=== PATIENT | male | born 1945 | race Caucasian/White ===

== ENCOUNTER → 2020-05-04 07:45 | Outpatient (BNVA) | payer MEDICARE, SELFPAY | PROVIDERS: Family Provider Internal Medicine; PCP Internal Medicine; Visit Provider Urology | DX: R97.20 Elevated prostate specific antigen [PSA] (principal); N40.1 Benign prostatic hyperplasia with lower urinary tract symptoms | CPT/HCPCS: 81003; 84153 ==

== ENCOUNTER → 2020-09-05 13:24 | Outpatient (BNVA) | payer MEDICARE, SELFPAY | PROVIDERS: Family Provider Internal Medicine; PCP Family Medicine; Visit Provider Urology | DX: R97.20 Elevated prostate specific antigen [PSA] (principal); N40.1 Benign prostatic hyperplasia with lower urinary tract symptoms | CPT/HCPCS: 84153 ==

== ENCOUNTER → 2021-06-05 10:26 | Outpatient (BNVA) | payer MEDICARE, SELFPAY | PROVIDERS: Family Provider Internal Medicine; PCP Family Medicine; Visit Provider Urology | DX: R97.20 Elevated prostate specific antigen [PSA] (principal); N40.1 Benign prostatic hyperplasia with lower urinary tract symptoms | CPT/HCPCS: 81003; 84153 ==

== ENCOUNTER 2021-12-18 09:23 | Outpatient (CLI) | payer MEDICARE, SELFPAY ==
[2021-12-18 10:50] LABS: Prostate Specific AG Urology 8.56 ng/mL (0-4)
== END 2021-12-18 09:24 | disposition home or self-care (01) ==
PROVIDERS: PCP Family Medicine; Visit Provider Urology
DX: R97.20 Elevated prostate specific antigen [PSA] (principal); N40.1 Benign prostatic hyperplasia with lower urinary tract symptoms
CPT/HCPCS: 36415; 51798; 81003; 84153; 99213

== ENCOUNTER → 2022-06-13 08:59 | Outpatient (BNVA) | payer MEDICARE, SELFPAY | PROVIDERS: PCP Family Medicine; Visit Provider Urology | DX: R97.20 Elevated prostate specific antigen [PSA] (principal) | CPT/HCPCS: 84153 ==

== ENCOUNTER → 2022-06-20 10:09 | Outpatient (BNVA) | payer OTHER, MEDICARE, SELFPAY | PROVIDERS: PCP Family Medicine; Visit Provider Urology | DX: N40.1 Benign prostatic hyperplasia with lower urinary tract symptoms (principal); R97.20 Elevated prostate specific antigen [PSA] | CPT/HCPCS: 51798; 99213 ==

== ENCOUNTER → 2022-07-04 11:36 | Outpatient (BNVA) | payer OTHER, MEDICARE, SELFPAY | PROVIDERS: PCP Family Medicine; Visit Provider Nurse Practitioner Family | DX: L71.8 Other rosacea (principal); I87.2 Venous insufficiency (chronic) (peripheral); L57.0 Actinic keratosis; L82.1 Other seborrheic keratosis; Z85.820 Personal history of malignant melanoma of skin; Z87.891 Personal history of nicotine dependence; L57.8 Other skin changes due to chronic exposure to nonionizing radiation | CPT/HCPCS: 17000; 17003; 99214 ==

== ENCOUNTER 2022-09-07 08:00 | Outpatient (CLI) | payer MEDICARE, SELFPAY ==
--- NOTE | 2022-09-07 | PETR_ITS ---
PROCEDURE INFORMATION: Exam: PET/CT Skull Base to Mid-thigh Exam date and time: 09/07/2022 11:46 AM Age: 77 years old Clinical indication: Abnormal findings; Lung mass on recent CT LABS AND CLINICAL REPORTS: Glucose: 112 mg/dl Treatment strategy for malignancy (PET staging): Initial Staging (PI) TECHNIQUE: Imaging protocol: Following at least four-hour fasting and following the injection of radiopharmaceutical, low dose CT images were obtained. Then, PET images were obtained. Attenuation corrected images were constructed using the CT scan. Fused images of PET and CT were reviewed. The standardized uptake values (SUV) reported below are maximum values within a region of interest, expressed in gm/ml. Exam includes orbital meatal line to mid-thigh. Radiopharmaceutical: 12.29 mCi F-18 FDG (Fluorodeoxyglucose), IV. Time of imaging post radiopharmaceutical administration: 1 hour Injection site: Left antecubital COMPARISON: No relevant prior studies available. FINDINGS: Brain: Visualized brain has normal physiologic uptake. Paranasal sinuses: Postoperative changes of resection of portions of the medial howe of the bilateral maxillary sinuses are noted. No abnormal uptake. Pharynx: No abnormal uptake. Larynx: No abnormal uptake. Lungs, pleura and trachea: No abnormal uptake. Mild bullous changes in the medial right upper lobe are noted. Linear dependent streaky density in the lower lobes and lingula is noted without elevated uptake, likely representing atelectasis or scarring. A solid lingular nodule which does not appear calcified measuring 4 mm on series 3, image 74 is not radiotracer avid. Evaluation of the lungs is slightly limited by respiratory motion artifact. Heart: Normal physiologic uptake. Mediastinal space: No abnormal uptake. Liver: No abnormal uptake. Gallbladder and bile ducts: No abnormal uptake. Pancreas: No abnormal uptake. Spleen: No abnormal uptake. Adrenal glands: No abnormal uptake. Kidneys and ureters: Normal physiologic uptake. Stones in the right kidney are noted. No hydronephrosis. Stomach and bowel: No abnormal uptake. There are scattered colonic diverticula. Reproductive: There are bilateral scrotal surgical clips. No abnormal uptake. Vasculature: No abnormal uptake. Lymph nodes: An inferior right paratracheal/precarinal lymph node measuring 1.2 cm on series 3, image 61 is noted, SUV max 5.5. An approximately 1.1 cm subcarinal lymph node is present, SUV max 4.0. An 8 mm lymph node in the aortopulmonary window on image 62 is present, SUV max 4.0. Uptake within a right hilar lymph node measuring 1 cm on series 3, image 64 is noted, SUV max 5.4. Small foci of uptake in the left hilar region are noted without well-defined lymph nodes, for example within SUV max 4.2 on image 62 and SUV max 4.1 on image 68. Bones/joints: No abnormal uptake in the visualized axial and appendicular skeleton. Nutm-ub-[id number] diffuse degenerative vertebral body spondylosis is present. Soft tissues: No abnormal uptake in the visualized head, neck, chest, abdomen, pelvis, and extremities. METRICS: Mediastinal blood pool: SUV max 2.7 PET/[facility] INITIAL [id number] IMPRESSION: 1. Small mediastinal and bilateral hilar lymph nodes are noted with mild uptake.This may be reactive, secondary to infectious or inflammatory involvement. Neoplastic involvement cannot be excluded. 2. A non radiotracer avid lingular nodule measuring 4 mm is noted. Lack of uptake favors a benign etiology however assessment of small nodules can be limited by PET-CT. No additional lung nodule or mass is identified. If prior imaging studies of the chest are made available for comparison, an addendum can be added. 3. Additional nonurgent findings as detailed above.
== END 2022-09-09 06:11 | disposition home or self-care (01) ==
PROVIDERS: PCP Family Medicine; Visit Provider Nurse Practitioner Family
DX: R91.8 Other nonspecific abnormal finding of lung field (principal); R93.89 Abnormal findings on diagnostic imaging of other specified body structures
CPT/HCPCS: 78815; A9552

== ENCOUNTER → 2023-01-08 10:46 | Outpatient (BNVA) | payer OTHER, MEDICARE, SELFPAY | PROVIDERS: PCP Family Medicine; Visit Provider Nurse Practitioner Family | DX: L71.8 Other rosacea (principal); I87.2 Venous insufficiency (chronic) (peripheral); L82.1 Other seborrheic keratosis; L57.8 Other skin changes due to chronic exposure to nonionizing radiation; Z08 Encounter for follow-up examination after completed treatment for malignant neoplasm; Z85.820 Personal history of malignant melanoma of skin; L82.0 Inflamed seborrheic keratosis; L57.0 Actinic keratosis | CPT/HCPCS: 17000; 17110; 99214 ==

== ENCOUNTER → 2023-01-14 13:53 | Outpatient (BNVA) | payer MEDICARE, SELFPAY | PROVIDERS: PCP Family Medicine; Referring Provider Nurse Practitioner Family; Visit Provider Internal Medicine Pulmonary Disease | DX: R91.1 Solitary pulmonary nodule (principal); J45.909 Unspecified asthma, uncomplicated; R59.0 Localized enlarged lymph nodes; Z87.891 Personal history of nicotine dependence | CPT/HCPCS: 99204 ==

== ENCOUNTER 2023-01-28 08:35 | Day surgery (SDC) | payer MEDICARE, SELFPAY ==
[2023-01-28] VITALS (11 sets, daily range): BP systolic 125–152; BP diastolic 67–107; PULSE 78–106; RESP 12–20; TEMP 36.3–36.7; O2SAT 90–94; BMI 37.6
[2023-01-28] MEDS: sodium chloride 0.9% 1,000 ML 30 ML IV (09:05)
--- NOTE | 2023-01-28 09:13 | ANES.PREANE2 ---
Pre-Anesthetic Assessment Height/Weight: Height 1.8 m Weight 122.47 kg Temp Pulse Resp BP Pulse Ox O2 Del Method 98.0 F 91 20 H 152/92 94 Room Air 01/28/23 08:59 01/28/23 08:59 01/28/23 08:59 01/28/23 08:59 01/28/23 08:59 01/28/23 08:59 Preop Diagnosis: lung mass Operation Date: 01/28/23 09:45 Proposed Procedures p EBUS, 63485, 07113, 10922, 36055, 95237,R91.1(Not Applicable) - Jacinto Kim DataMD estrella Familial anesthetic complications: none Was Beta Barb taken within 24 hours: Yes Was Clonidine taken within 24 hours: N/A Last intake: Intake Last Liquid Date 01/27/23 Last Liquid Time 21:00 Last Solid Date 01/27/23 Last Solid Time 15:00 Social No alcohol and No tobacco Exam alert, oriented x 3, clear to auscultation bilaterally and regular rate & rhythm Airway Submandibular: within normal limits Cervical ROM: within normal limits Mallampati: Class II Dentition: full Pulmonary Asthma, Exertional Dyspnea and Sleep Apnea (CPAP) inhaler daily CV/HEM Hypertension None reported Hepatic None reported GI None reported Metabolic Morbid Ob[place] [facility] [place] None reported Neuropsych None reported Anesthetic Plan ASA status: 3 Anesthesia: General Risk of > 500 ml blood loss (7ml/kg in children): No Medications/Allergies Home Medications Medication Instructions Recorded Confirmed Last Taken Type albuterol sulfate 90 mcg/actuation 2 inh inhalation Q6H 05/04/20 01/28/23 01/28/23 History breath activated powder inhaler,sensor (Proair Digihaler) amlodipine 10 mg tablet 10 mg PO DAILY 05/04/20 01/28/23 01/27/23 History atenolol 25 mg tablet 25 mg PO DAILY 05/04/20 01/28/23 01/27/23 History fluticasone propionate 110 2 puff inhalation BID 05/04/20 01/28/23 01/28/23 History mcg/actuation HFA aerosol inhaler (Flovent HFA) furosemide 20 mg tablet 20 mg PO DAILY 05/04/20 01/28/23 01/27/23 History montelukast 10 mg tablet 10 mg PO DAILY 05/04/20 01/28/23 01/27/23 History rivaroxaban 20 mg tablet (Xarelto) 20 mg PO DAILY 05/04/20 01/28/23 01/26/23 History clindamycin phosphate 1 % lotion 1 applic topical DAILY #60 mL 07/17/20 01/28/23 01/27/23 Rx triamcinolone acetonide 0.1 % 1 applic topical BID #80 grams 08/23/20 01/28/23 01/27/23 Rx topical cream finasteride 5 mg tablet 5 mg PO QDAY #90 tabs 04/03/21 01/28/23 01/27/23 Rx tamsulosin 0.4 mg capsule 0.4 mg PO BID #180 caps 04/09/21 01/28/23 01/27/23 Rx Allergies Allergy/AdvReac Type Severity Reaction Status Date / Time No Known Allergies Allergy Verified 01/28/23 08:57 Current Medications Generic Name Dose Route Start Last Admin Trade Name Freq PRN Reason Stop Dose Admin Sodium Chloride 1,000 mls @ 30 mls/hr 01/28/23 08:45 01/28/23 09:05 Sodium Chloride 0.9% IV 01/29/23 08:44 30 mls/hr .Q24H EDEN Administration PFSH Anesthesia Medical History (Updated 01/18/23 @ 10:30 by Jacinto Young MD) BPH loc w urin obs/LUTS Chronic sinusitis Chronic gout DM2 (diabetes mellitus, type 2) Tortuous aorta Aortic ectasia Asthma Hyperlipidemia HTN (hypertension) Chronic atrial fibrillation COPD (chronic obstructive pulmonary disease) Elevated PSA Surgical History History of cataract surgery BILATERAL -LASER SURGERY ALSO H/O shoulder surgery RIGHT H/O sinus surgery x3 H/O right knee surgery Family History Mother , AT AGE 96 No problems noted. Father , AT AGE 102 No problems noted. Social History Smoking and tobacco/nicotine status: former use of tobacco/nicotine Quit status (tobacco/nicotine): has quit using Year quit tobacco: 1986 Former quit date comment: 1ppd X 12 years Alcohol intake: never Marital status: / Current occupational status: retired Data Anesthesia Cardiac Studies: No Data to Display
--- NOTE | 2023-01-28 10:04 | W.PM.OPSUD ---
Surgery/Procedure H&P Update DATE OF PROCEDURE: January 28, 2023 DATE H&P PERFORMED: 01/14/23 H&P UPDATE INFORMATION: I have reviewed H&P completed within last 30 days, I have examined patient prior to procedure and No changes to prior documentation CHANGES TO PREVIOUS DOCUMENTATION: none PREOP DIAGNOSIS: pet active hilar lymphadenopathy PRIMARY INDICATION FOR PROCEDURE: pet active hilar lymphadenopathy rule out malignancy PLANNED PROCEDURE: Operation Date: 01/28/23 09:45 Proposed Procedures p EBUS, 94601, 37053, 73652, 95916, 32003,R91.1(Not Applicable) - Jacinto Kim DatarMD
[2023-01-28] MEDS: lidocaine 1% INJ 10 mL (per mL) XX (10:25)
--- NOTE | 2023-01-28 11:05 | PM.OP ---
Operative Report Date of procedure: January 28, 2023 Pre-op diagnosis: PET active hilar/mediastinal lymphadenopathy suspected malignancy Post-op diagnosis: same Procedure done: 07498 Bronch via Trach site 25725 Bronchoscopy w/ therapeutic aspiration of the tracheobronchial tree (clearance of airway secretions, removal of mucus plugs) 20758 EBUS Sampling 1/2 nodes Surgeon: Jacinto Young MD Brief History: Mr. Kemal Segovia is a 77 year old male with PMH of Referred by Ms. Elham Grider for lung nodule. Past medical history of diabetes, MARGIE on CPAP, morbid obesity, hypertension, COPD, chronic atrial fibrillation on Xarelto, Patient has seen his PCP on 08/02/2022 for dizziness and shortness of breath. As part of workup he had a chest x-ray-which showed lung nodule greater than [address] chest on 08/08/2022-showed 4 x 4 x 3.8 cm groundglass nodule right upper lobe with a 1.4 cm solid component. There is dominant 4.4 cm groundglass with a 1.4 cm solid component within the right upper lobe concerning for potential malignancy. There is an additional right upper lobe nodular 1.2 cm groundglass focus. There are other nonnodular groundglass opacities seen bilaterally that favor infectious/inflammatory entities. Patient had a PET/CT 09/07/2022: Which did not show any abnormal uptake in the lungs. There is evidence of bullous changes in the medial right upper lobe. There is a linear dependent streaky density in the lower lobes and lingula without elevated uptake. Likely representing atelectasis or scarring. There is a solid lingular nodule which does not appear calcified however there is no radiotracer uptake. However there is mild mediastinal and bilateral hilar lymph nodes with mild uptake with right paratracheal/precarinal lymph node 1.2 cm SUV max 5.5. Uptake within the right hilar lymph node measuring 1 cm max 5.4..This may be reactive, secondary to infectious or inflammatory involvement. Neoplastic involvement cannot be excluded. Former smoker with hx of 1 ppd X 12 years, quit in 1986. Patient is currently using Advair Diskus and albuterol as needed. Today scheduled for endobronchial ultrasound surveillance/biopsy of mediastinal/bilateral lymph nodes. No complaints. Procedure: 93626 Bronch via Trach site 48769 Bronchoscopy w/ therapeutic aspiration of the tracheobronchial tree (clearance of airway secretions, removal of mucus plugs) 15136 EBUS Sampling 1/2 nodes Indication: PET active mediastinal/hilar lymph nodes-rule out Malignancy Anesthesia: General anesthesia. Local anesthesia: The mukul in the right and left mainstem bronchi were anesthetized with 1% lidocaine, 3 mL. Description of the procedure: The procedure was explained to the patient and the consent was obtained. The patient was brought to the OR. The patient underwent induction for general anesthesia and endotracheal tube was placed. The bronchoscope was advanced through the ET tube. The distal trachea was visualized. Tracheal mucosa appeared normal, no endotracheal lesion was seen. The mukul was sharp. 1 mL each of 1% lidocaine was instilled in the trachea the right and left mainstem bronchi for local anesthesia. In a systematic manner bilateral bronchial tree was then examined. The bronchoscope was then introduced into the right mainstem bronchus. The right upper lobe, right middle lobe and right lower lobe bronchi were examined up to the third subsegmental level and no abnormalities were identified. The mucosa appeared normal with no endobronchial lesions, active bleeding or mucous plugs.There were mucous secretions which were suctioned right away(15706). The bronchoscope was advanced into the left mainstem bronchus. There is a endobronchial lesion which is completely occluding left lower lobe airway. It is friable and started to bleed as soon as bronchoscope touched the surface. The left upper lobe, and lingula were examined up to the third subsegmental level and no abnormalities were identified. Mucosa of left upper lobe and lingula appeared normal with no endobronchial lesion. There were mucous secretions which were suctioned right away(13897). Bronchoscope was retracted and Endobronchial Ultrasound (EBUS)(29172 ) was introduced. Identified a lymph nodes in station 11 R as well as 4R. Using [id number] were taken from station 11 R and 4R (40469); there was some evidence of bleeding which is controlled with instillation of cold saline. After making sure there is no active bleeding, bronchoscope retracted and procedure terminated. Samples: EBUS guided Fine-needle aspiration from station 11 R and 4R lymph nodes (30702); 1. Total of 4 passes were made using needle aspiration(01756) from station 11 R; all the material was placed in formalin and sent for histopathology 2. Total of 5 passes were made using needle aspiration(48023) from station 4R; all the material was placed in formalin and sent for histopathology Complications: None.The patient was extubated and brought to the PACU in stable condition. Disposition: Patient can be discharged home in stable condition. Pt is aware that I am going to call them to update final biopsy results once available. Related Problem List Diagnoses (1) Hilar adenopathy:
--- NOTE | 2023-01-28 14:00 | ANE.PACU2 ---
Inpatient post-anesthesia follow up: Airway intact: Yes Vital signs: Temperature 97.4 F Pulse Rate 83 Respiratory Rate 18 Blood Pressure 141/74 Pulse Oximetry 94 Oxygen Delivery Me thod Room Air Oxygen Flow Rate 3 Fraction of Inspir ed Oxygen Hydration adequate: Yes Nausea and vomiting: No Pain level: 2 Mental status: Baseline
[2023-01-29 14:17] LABS: Lymphoma Profile (BBPL) See Report
== END 2023-01-28 12:30 | disposition home or self-care (01) ==
PROVIDERS: PCP Family Medicine; Visit Provider Internal Medicine Pulmonary Disease
PROC: BB4BZZZ Ultrasonography of Pleura (ICD-10-PCS; principal; 2023-01-28 09:35)
DX: R91.8 Other nonspecific abnormal finding of lung field (principal); E11.9 Type 2 diabetes mellitus without complications; G47.33 Obstructive sleep apnea (adult) (pediatric); E66.01 Morbid (severe) obesity due to excess calories; Z68.37 Body mass index [BMI] 37.0-37.9, adult; I10 Essential (primary) hypertension; J44.9 Chronic obstructive pulmonary disease, unspecified; I48.20 Chronic atrial fibrillation, unspecified; Z79.01 Long term (current) use of anticoagulants; N40.1 Benign prostatic hyperplasia with lower urinary tract symptoms; N13.8 Other obstructive and reflux uropathy; E78.5 Hyperlipidemia, unspecified
CPT/HCPCS: 31645; 31652; 88184; 88185; 88305; J1100; J2405; J2704; J2710; J3010; J3490; J7030

== ENCOUNTER → 2023-02-04 11:53 | Outpatient (BNVA) | payer MEDICARE, SELFPAY | PROVIDERS: PCP Family Medicine; Visit Provider Internal Medicine Pulmonary Disease | DX: J45.20 Mild intermittent asthma, uncomplicated (principal); J22 Unspecified acute lower respiratory infection; R91.8 Other nonspecific abnormal finding of lung field; Z87.891 Personal history of nicotine dependence | CPT/HCPCS: 36415; 82785; 85025; 86003; 99214 ==

== ENCOUNTER 2023-02-27 11:42 | Outpatient (CLI) | payer OTHER, SELFPAY ==
[2023-02-27 12:54] VITALS: PULSE 81; RESP 18; O2SAT 95
[2023-02-27] MEDS: albuterol 2.5 mg/3 mL Neb INHALATION (12:55)
[2023-02-27 12:59] VITALS: PULSE 73
== END 2023-02-27 11:43 | disposition home or self-care (01) ==
PROVIDERS: PCP Family Medicine; Visit Provider Internal Medicine Pulmonary Disease
DX: J44.9 Chronic obstructive pulmonary disease, unspecified (principal); R94.2 Abnormal results of pulmonary function studies
CPT/HCPCS: 94060; 94618; 94726; 94729; J7613

== ENCOUNTER 2023-05-22 09:43 | Outpatient (CLI) | payer OTHER, SELFPAY ==
--- NOTE | 2023-05-22 10:00 | CT_ITS ---
WS: [id number] CT chest wo con 08320 HISTORY: annual f/u TECHNIQUE: Axial imaging performed through the thorax. Coronal and sagittal reformats are submitted. All CT scans at [facility] use at least one of these dose optimization techniques: automated exposure control; mA and/or kV adjustment per patient size (includes targeted exams where dose is mat ched to clinical indication); or iterative reconstruction. CONTRAST: None DLP: 663.04 mGy.cm COMPARISON: PET/CT 09/07/2022 Lungs and central airway: Mild hyperinflation of the lungs. Slight volume loss in the LEFT thorax. Th ere is mild elevation of the LEFT hemidiaphragm. Bilateral lower lobe and lingular areas of groundgla ss and subsolid opacifications. Similar findings were also noted on the PET/CT. Mild groundglass atte nuation medial LEFT upper lobe. There are a few small nodules interposed upon the groundglass and sub solid opacifications. There are no enlarging or new nodules identified. Pleura: Normal. No pleural effusion. Heart and pericardium: Mild cardiomegaly. Mild pleural thickening anteriorly. Mediastinum and sylvester: No mediastinum or hilar adenopathy. Vessels: Mild atherosclerosis aorta. Mild aneurysmal dilatation of the ascending aorta to 4.3 cm. Nor mal descending aorta. Normal size pulmonary artery. Chest wall and lower neck: No soft tissue masses. Upper abdomen: The entire adrenal glands are not included but no mass is identified. Mild suprarenal aortic calcification. Mild hepatic steatosis. Osseous structures: Increase in thoracic kyphosis with disc space narrowing. IMPRESSION: 1. No prior chest CT available for comparison. The CT component from the PET/CT of 09/07/2022 is revi ewed. 2. Bilateral groundglass opacifications and subsolid opacifications and a few small nodules within t he opacifications. These findings have not significantly progressed progressed compared to the PET/CT . 3. No adenopathy. 4. Mild aneurysmal dilatation ascending aorta 4.3 cm. 5. Mild cardiomegaly.
== END 2023-05-22 09:44 | disposition home or self-care (01) ==
LOC: RAD 09:43
PROVIDERS: PCP Family Medicine; Visit Provider Internal Medicine Pulmonary Disease
DX: R91.1 Solitary pulmonary nodule (principal)
CPT/HCPCS: 71250

== ENCOUNTER → 2023-06-04 11:00 | Outpatient (BNVA) | payer OTHER, SELFPAY | PROVIDERS: PCP Family Medicine; Visit Provider Internal Medicine Pulmonary Disease | DX: R91.1 Solitary pulmonary nodule (principal); J45.20 Mild intermittent asthma, uncomplicated | CPT/HCPCS: 99214 ==

== ENCOUNTER → 2023-07-09 11:19 | Outpatient (BNVA) | payer OTHER, SELFPAY | PROVIDERS: PCP Family Medicine; Visit Provider Nurse Practitioner Family | DX: L57.0 Actinic keratosis (principal); L71.8 Other rosacea; L82.0 Inflamed seborrheic keratosis; I87.2 Venous insufficiency (chronic) (peripheral); L82.1 Other seborrheic keratosis; L57.8 Other skin changes due to chronic exposure to nonionizing radiation; Z85.820 Personal history of malignant melanoma of skin | CPT/HCPCS: 17004; 99213 ==

== ENCOUNTER 2023-09-18 09:43 | Oncology outpatient (recurring) (ONCR) | payer OTHER, SELFPAY ==
--- NOTE | 2023-09-18 11:22 | N.ONRAD NP_ITS ---
Radiation Oncology New Patient Visit Patient: Kemal Segovia MR#: [id number] : 1945 Age: 78 Sex: Male Dictated by: Dr. Desiree Lindsey Date of Service: 09/18/2023 Referring Physician(s) : Dr. Keaton Anthony Diagnosis: C61 ??? Malignant neoplasm of prostate Radiotherapy to date: Summary > No prior radiation therapy. Chief Complaint / History of Present Illness: Mr. Segovia is a 76-year-old who has been diagnosed with a Dixon score 8 (4+4 ) adenocarcinoma the prostate most recent PSA 10.67. His biopsy was done on 07/31/2023. He said this was found after he actually had switched urologist as his first urologist had retired. He then visited with Dr. Anthony who then proceeded with intervention when he found his PSA to be elevated. He also was having some significant urinary symptoms with a current IPSS score of 26. He even had hematuria and is part of his workup had a cystoscopy which did not show any bladder cancer. His biopsy did show 5 of 13 biopsies positive both from the right and left sides of the prostate. He is here today to discuss the radiation option for prostate cancer. Current Medications: Allergies: NKA Medical History: No history of collagen vascular disease. No previous radiation therapy. He has been exposed to agent orange, hypertension, gout, hyperlipidemia, obesity, right knee pain, peripheral vascular disease, hard of hearing, diabetes, asthma from exposure to spraying wood will, osteoarthritis, BPH, A-fib Surgical History: Prostate biopsy, cataract surgery, shoulder surgery, sinus surgery, right knee surgery Family History: Father at 102, mother at 96 Social History: He quit smoking in 1986, never smoked, he is a Current Complaints / Review of Systems: . Vital Signs: Performed on 09/18/2023 9:54 AM BMI - 38.076 kg/m2 (high), Height - 71 in, Weight - 273 lbs, Temperature - 97 f, Pulse - 63 /min, Respiration - 18 /min, O2 Sat - 97 %, Pain - 0, Fatigue - 0 and BP - 118/ 77 mm(hg). Physical Exam: General: Patient is in no apparent distress. He is accompanied today by her cousin HEENT: Normocephalic atraumatic. Pupils are equal, sclera clear, extraocular muscles intact Pulmonary: Respiratory rate is regular nonlabored Cardiovascular: Irregular rate and rhythm Abdomen: Patient is obese with a fairly protuberant abdomen Extremities: Without obvious edema or lymphedema Neurological: Alert and orient x 3. Gait and speech within normal limits. Psych: Affect appropriate for current situation Performance Status: 100 Pathology: [place] score 8 adenocarcinoma the prostate Lab: Imaging: See HPI Impression: Adenocarcinoma the prostate Dixon score 8, 4+4, PSA 10.67 with 5 of 13 biopsies positive Plan: I reviewed with Mr. Segovia the Dixon score and the level of his PSA. We discussed the various treatment options for prostate cancer. We reviewed the simulation process. We discussed the daily treatment regiment. We reviewed the risks of the radiation both acute and long-term. We discussed the number of treatments which were typically using a little less than 6 weeks of treatment now. He also had previously talked with Raina about having the fiducials placed and perhaps taking a pill. [facility] is [facility] all of his treatment. At this point all of his questions were answered. Will go ahead and call Dr. Anthony's office to let them know that he is ready to have his fiducials placed. Patient did have a significant bladder infection after he had the biopsy done on his bladder. He did not have an infection after his prostate biopsy. I do not feel he will be at risk for any issues with the fiducial placement. If however there is an issue that this might be a problem we can always proceed with treatment without the fiducials. Once these have been placed we will see him back in 1 to 2 weeks to initiate the planning. Signed by: 09/18/2023 11:21:37 AM <<Signature on File>> Time spent with patient:45 CPT Code: CPT Code:
== END 2023-09-24 23:59 | disposition home or self-care (01) ==
LOC: ONCMED 09:43
PROVIDERS: PCP Family Medicine; Visit Provider Radiology Radiation Oncology
DX: C61 Malignant neoplasm of prostate (principal)
CPT/HCPCS: 99205

== ENCOUNTER → 2023-10-09 10:09 | Outpatient (BNVA) | payer OTHER, SELFPAY | PROVIDERS: PCP Family Medicine; Visit Provider Nurse Practitioner Family | DX: L57.0 Actinic keratosis (principal); I87.2 Venous insufficiency (chronic) (peripheral); L82.1 Other seborrheic keratosis; L57.8 Other skin changes due to chronic exposure to nonionizing radiation; Z85.820 Personal history of malignant melanoma of skin | CPT/HCPCS: 17000; 99213 ==

== ENCOUNTER 2023-12-22 10:03 | Oncology outpatient (recurring) (ONCR) | payer OTHER, SELFPAY ==
[2023-12-15 11:44] LABS: Bilirubin Urine Negative (Negative); Blood Urine Trace (Negative); Glucose Urine UA Negative (Normal); Ketones Urine Negative (Negative); Leukocyte Esterase Urine Trace (Negative); Nitrate Urine Negative (Negative); Protein Urine Negative (Negative); Specific Gravity, Urine 1.015 (1.005-1.030); Urine Appearance Clear (CLEAR); Urine Color Yellow (Yellow); Urobilinogen Urine 0.2 mg/dL (Negative); pH Urine 5.5 (5-7)
[2023-12-15 11:48] LABS: Add Urine Microscopic? YES; Bacteria Urine None Seen /hpf; Hyaline Casts Urine 1.21 /lpf; RBC Urine 0-2 /hpf (0-2); Squamous Epithelial Cell Urine 0-5 /hpf (0-5); WBC Urine 0-5 /hpf (0-5)
--- NOTE | 2023-12-15 12:40 | ONCRAD TMN_ITS ---
Radiation Oncology Weekly Treatment Management Patient: Kemal Segovia MR#: [id number] : 1945 Attending Physician: Dr. Narciso Mckeon Date of Service: 12/15/2023 Referring Physician(s) : Dr. Keaton Anthony Diagnosis: C61 - Malignant neoplasm of prostate, Diagnosed 12/01/2023 (Active) Radiotherapy to date: Course: Prostate/Pelvis, Treatment Site: [id number], Ref. ID: [id number], Energy: 15X, Dose/Fx (cGy): 250, #Fx: , Dose Correction (cGy): 0, Total Dose Delivered (cGy): 750, Start Date: 12/11/2023, Elapsed Days: 4 Reason for visit: The patient is being seen today as part of their regularly scheduled weekly on treatment visits to assess for acute toxicities from radiotherapy. Review of Systems: He is on assisted Flomax BID. Now he has 5 x nocturia and burning urination with urgency and less flow. Vital Signs: Performed on 12/15/2023 11:09 AM BMI - 39.052 kg/m2 (high), Height - 71 in, Weight - 280.0 lbs, Temperature - 97 f, Pulse - 77 /min, Respiration - 16 /min, O2 Sat - 97 %, Pain - 0, Fatigue - 0 and BP - 120/ 70 mm(hg). Physical Exam: Imaging: Radiation therapy imaging related to accurate target localization (i.e. KV, MV and CBCT) was reviewed. Appropriate changes, if any, were made to ensure treatment accuracy. Plan: Check UA and get urinary culture. Begin Cipro 500 mg a day x 3 days for presumed UTI Continue radiation as planned. Signed by: Dr. Narciso Mckeon 12/15/2023 12:38:13 PM
== END 2023-12-22 23:59 | disposition home or self-care (01) ==
PROVIDERS: Radiology Radiation Oncology; PCP Family Medicine; Visit Provider Radiology Radiation Oncology
DX: Z51.0 Encounter for antineoplastic radiation therapy (principal); C61 Malignant neoplasm of prostate
CPT/HCPCS: 77300; 77301; 77334; 77336; 77338; 77385; 77386; 81001; 99024

== ENCOUNTER 2023-12-25 09:55 | Oncology outpatient (recurring) (ONCR) | payer OTHER, SELFPAY ==
--- NOTE | 2023-12-23 11:27 | ONCRAD TMN_ITS ---
Radiation Oncology Weekly Treatment Management Patient: Juliette Stockton MR#: [id number] : 1945> Attending Physician: Dr. Narciso Mckeon Date of Service: 12/23/2023 Referring Physician(s) : Dr. Keaton Anthony Diagnosis: C61 - Malignant neoplasm of prostate, Diagnosed 12/01/2023 (Active) Radiotherapy to date: Course: Prostate/Pelvis, Treatment Site: [id number], Ref. ID: [id number], Energy: 15X, Dose/Fx (cGy): 250, #Fx: , Dose Correction (cGy): 0, Total Dose Delivered (cGy): 2,000, Start Date: 12/11/2023, End Date: 12/23/2023, Elapsed Days: 12 Reason for visit: The patient is being seen today as part of their regularly scheduled weekly on treatment visits to assess for acute toxicities from radiotherapy. Review of Systems: Previous urinalysis was clear. After cypor x 3 days burning has nearly resolved. He has poor flow, incomplete emptying and up to 7 x nocturia. Old med list does note tht he may be on tamsulosin BID. He cannot recall name of meds. Vital Signs: Performed on 12/23/2023 10:31 AM BMI - 38.467 kg/m2 (high), Height - 71 in, Weight - 275.8 lbs, Temperature - 98.1 f, Pulse - 73 /min, Respiration - 17 /min, O2 Sat - 93 % (low), Pain - 0, Fatigue - 0 and BP - 107/ 59 mm(hg)(/low). Physical Exam: omitted. Imaging: Radiation therapy imaging related to accurate target localization (i.e. KV, MV and CBCT) was reviewed. Appropriate changes, if any, were made to ensure treatment accuracy. Plan: Fair to good tolerance of treatment. Will review all meds tomorrow when he will bring in pill bottles. Signed by: Dr. Narciso Mckeon 12/23/2023 11:26:22 AM
--- NOTE | 2023-12-24 11:13 | ONCRAD TMN_ITS ---
Radiation Oncology Weekly Treatment Management Patient: Juliette Stockton MR#: [id number] : 1945> Attending Physician: Dr. Narciso Mckeon Date of Service: 12/24/2023 Referring Physician(s) : Dr. Keaton Anthony Diagnosis: C61 - Malignant neoplasm of prostate, Diagnosed 12/01/2023 (Active) Radiotherapy to date: Course: Prostate/Pelvis, Treatment Site: [id number], Ref. ID: [id number], Energy: 15X, Dose/Fx (cGy): 250, #Fx: , Dose Correction (cGy): 0, Total Dose Delivered (cGy): 2,250, Start Date: 12/11/2023, Elapsed Days: 13 Reason for visit: The patient is being seen today as part of their regularly scheduled weekly on treatment visits to assess for acute toxicities from radiotherapy. Review of Systems: See 12/23/2023 He is indeed on Tamsulosin .4 mg BID. Complete med list: Tamsulosin 0.4 mg BID Xarelto 20 mg a D Amlodipine 10 mg a D Montelulast 10 mg q D Atenolol 25 mg a D Glipizide 5 mg q D Finasteride 5 mg a D Allopurinol 100 mg q D Metformin 500 mg 2 BID Vital Signs: Physical Exam: omitted Imaging: Radiation therapy imaging related to accurate target localization (i.e. KV, MV and CBCT) was reviewed. Appropriate changes, if any, were made to ensure treatment accuracy. Plan: Continue treatment as planned. Signed by: Dr. Narciso Mckeon 12/24/2023 11:12:21 AM
== END 2023-12-25 23:59 | disposition home or self-care (01) ==
PROVIDERS: PCP Family Medicine; Visit Provider Radiology Radiation Oncology
DX: Z51.0 Encounter for antineoplastic radiation therapy (principal); C61 Malignant neoplasm of prostate
CPT/HCPCS: 77336; 77385; 99024

== ENCOUNTER 2024-01-14 10:05 | Oncology outpatient (recurring) (ONCR) | payer OTHER, SELFPAY ==
--- NOTE | 2023-12-30 10:24 | ONCRAD TMN_ITS ---
Radiation Oncology Weekly Treatment Management Patient: Juliette Stockton MR#: [id number] : 1945> Attending Physician: Dr. Narciso Mckeon Date of Service: 12/30/2023 Referring Physician(s) : Dr. Keaton Anthony Diagnosis: C61 - Malignant neoplasm of prostate, Diagnosed 12/01/2023 (Active) Radiotherapy to date: Course: Prostate/Pelvis, Treatment Site: [id number], Ref. ID: [id number], Energy: 15X, Dose/Fx (cGy): 250, #Fx: , Dose Correction (cGy): 0, Total Dose Delivered (cGy): 3,250, Start Date: 12/11/2023, Elapsed Days: 18 Reason for visit: The patient is being seen today as part of their regularly scheduled weekly on treatment visits to assess for acute toxicities from radiotherapy. Review of Systems: Urination is improved. Only 2 x nocturia last night. Flow is ok. No pain. Some intermittent incontinence x 1 to 2 months. Bowels are better, formed and less loose. On new urinary medication that he cannot recall what it is. Vital Signs: Performed on 12/30/2023 9:51 AM BMI - 39.75 kg/m2 (high), Height - 71 in, Weight - 285 lbs, Temperature - 97.2 f, Pulse - 74 /min, Respiration - 18 /min, O2 Sat - 93 % (low), Pain - 0, Fatigue - 0 and BP - 134/ 74 mm(hg). Physical Exam: omttted Imaging: Radiation therapy imaging related to accurate target localization (i.e. KV, MV and CBCT) was reviewed. Appropriate changes, if any, were made to ensure treatment accuracy. Plan: Good tolerance of treatment. He will bring in new med for review. Signed by: Dr. Narciso Mckeon 12/30/2023 10:23:11 AM
--- NOTE | 2024-01-06 11:17 | ONCRAD TMN_ITS ---
Radiation Oncology Weekly Treatment Management Patient: Kemal Segovia MR#: [id number] : 1945 Attending Physician: Dr. Desiree Lindsey Date of Service: 01/06/2024 Fractions: 18 out of 28 Referring Physician(s) : Dr. Keaton Anthony Diagnosis: C61 - Malignant neoplasm of prostate, Diagnosed 12/01/2023 (Active) Radiotherapy to date: Course: Prostate/Pelvis, Treatment Site: [id number], Ref. ID: [id number], Energy: 15X, Dose/Fx (cGy): 250, #Fx: , Dose Correction (cGy): 0, Total Dose Delivered (cGy): 4,250, Start Date: 12/11/2023, Elapsed Days: 25 Reason for visit: The patient is being seen today as part of their regularly scheduled weekly on treatment visits to assess for acute toxicities from radiotherapy. Review of Systems: Patient had an episode of incontinence that occurred when he bent over to put lotion on his legs. He has not had any burning with urination but he does have urgency with urination. He is also dealing with an increase in bowel movements. Apparently Friday was fairly severe with multiple stools that day. He has since had a decrease in the number with using the Imodium. Vital Signs: Performed on 01/06/2024 10:15 AM BMI - 39.415 kg/m2 (high), Height - 71 in, Weight - 282.6 lbs, Temperature - 96.9 f, Pulse - 76 /min, Respiration - 16 /min, O2 Sat - 96 %, Pain - 0, Fatigue - 0 and BP - 121/ 69 mm(hg). Physical Exam: No changes on exam Imaging: Radiation therapy imaging related to accurate target localization (i.e. KV, MV and CBCT) was reviewed. Appropriate changes, if any, were made to ensure treatment accuracy. Plan: I encouraged him to maybe add some Pepto-Bismol to his Imodium as tolerated. We talked about the lack of bladder control and how the urgency has gotten worse. I reassured him that I think all of this will get better once we finished with his treatments a month or 2 after. Will otherwise continue with his treatments as planned Signed by: Dr. Desiree Lindsey 01/06/2024 11:15:56 AM
--- NOTE | 2024-01-13 10:42 | ONCRAD TMN_ITS ---
Radiation Oncology Weekly Treatment Management Patient: Juliette Stockton MR#: [id number] : 1945> Attending Physician: Dr. Desiree Lindsey Date of Service: 01/13/2024 Fractions: 23 out of 28 Referring Physician(s) : Dr. Keaton Anthony Diagnosis: C61 - Malignant neoplasm of prostate, Diagnosed 12/01/2023 (Active) Radiotherapy to date: Course: Prostate/Pelvis, Treatment Site: [id number], Ref. ID: [id number], Energy: 15X, Dose/Fx (cGy): 250, #Fx: / , Dose Correction (cGy): 0, Total Dose Delivered (cGy): 5,750, Start Date: 12/11/2023, Elapsed Days: 33 Reason for visit: The patient is being seen today as part of their regularly scheduled weekly on treatment visits to assess for acute toxicities from radiotherapy. Review of Systems: Patient continues to have some urinary symptoms with increased nocturia and frequency during the day as well. Vital Signs: Performed on 01/13/2024 9:32 AM BMI - 38.997 kg/m2 (high), Height - 71 in, Weight - 279.6 lbs, Temperature - 96.8 f, Pulse - 78 /min, Respiration - 18 /min, O2 Sat - 95 % (low), Pain - 0, Fatigue - 7 and BP - 122/ 72 mm(hg). Physical Exam: No changes on exam Imaging: Radiation therapy imaging related to accurate target localization (i.e. KV, MV and CBCT) was reviewed. Appropriate changes, if any, were made to ensure treatment accuracy. Plan: He will be finished with his treatments in a week. He does have his first PSA scheduled in [place] just before . Will otherwise continue with his treatments as planned Signed by: Dr. Desiree Lindsey 01/13/2024 10:41:03 AM
== END 2024-01-14 23:59 | disposition home or self-care (01) ==
PROVIDERS: PCP Family Medicine; Visit Provider Radiology Radiation Oncology
DX: Z51.0 Encounter for antineoplastic radiation therapy (principal); C61 Malignant neoplasm of prostate
CPT/HCPCS: 77336; 77385; 99024

== ENCOUNTER 2024-01-20 09:47 | Oncology outpatient (recurring) (ONCR) | payer OTHER, SELFPAY ==
--- NOTE | 2024-01-20 10:44 | N.ONRD TS_ITS ---
Radiation Oncology Treatment Summary Patient: Juliette>Kath MR#: [id number] : 1945> Age: 78> Sex: Male Dictated by: Dr. Desiree Lindsey Date of Service: 01/20/2024 Referring Physician(s) : Dr. Keaton Anthony Diagnosis: C61 - Malignant neoplasm of prostate, Diagnosed 12/01/2023 (Active) Radiotherapy to Date: Course: Prostate/Pelvis, Treatment Site: [id number], Ref. ID: [id number], Energy: 15X, Dose/Fx (cGy): 250, #Fx: 28 / 28, Dose Correction (cGy): 0, Total Dose Delivered (cGy): 7,000, Start Date: 12/11/2023, End Date: 01/20/2024, Elapsed Days: 40 Clinical Summary: The patient tolerated RT well. He had increased frequency of bowel movements for which she took an occasional Imodium. He had increased frequency and urgency of urination. Towards the end of his treatments his bowel movements had actually improved. Plan: End of treatment today. Continue on the above medication until the skin reaction resolves. Follow up in one month. Signed by: Dr. Desiree Lindsey>01/20/2024 10:42:58 AM <<Signature on File>>
== END 2024-01-24 23:59 | disposition home or self-care (01) ==
PROVIDERS: PCP Family Medicine; Visit Provider Radiology Radiation Oncology
DX: Z51.0 Encounter for antineoplastic radiation therapy (principal); C61 Malignant neoplasm of prostate
CPT/HCPCS: 77336; 77385; 99024

== ENCOUNTER → 2024-02-09 09:22 | Outpatient (BNVA) | payer OTHER, SELFPAY | PROVIDERS: PCP Family Medicine; Visit Provider Nurse Practitioner Family | DX: I87.2 Venous insufficiency (chronic) (peripheral) (principal); L82.1 Other seborrheic keratosis; L44.8 Other specified papulosquamous disorders; L71.1 Rhinophyma; Z08 Encounter for follow-up examination after completed treatment for malignant neoplasm; Z85.820 Personal history of malignant melanoma of skin; L82.0 Inflamed seborrheic keratosis; Z78.9 Other specified health status; R20.8 Other disturbances of skin sensation; L57.0 Actinic keratosis; L29.89 Other pruritus | CPT/HCPCS: 17000; 17110; 99213 ==

== ENCOUNTER 2024-02-19 09:47 | Oncology outpatient (recurring) (ONCR) | payer OTHER, SELFPAY ==
--- NOTE | 2024-02-19 11:00 | ONCRAD EPV_ITS ---
Radiation Oncology Established Patient Visit Patient: Juliette Sommer [id number] : 1945> Age: 78> Sex: Male> Dictated by: Dr. Desiree Lindsey Date of Service: 02/19/2024 Referring Physician(s) : Dr. Keaton Anthony Diagnosis: C61 - Malignant neoplasm of prostate, Diagnosed 12/01/2023 (Active) Radiotherapy to Date: Course: Prostate/Pelvis, Treatment Site: [id number], Ref. ID: [id number], Energy: 15X, Dose/Fx (cGy): 250, #Fx: , Dose Correction (cGy): 0, Total Dose Delivered (cGy): 7,000, Start Date: 12/11/2023, End Date: 01/20/2024, Elapsed Days: 40 Current History: Patient has a month from completing treatment. He had had fairly severe frequency of urination and loose stools during the course of his treatment. He has frequency of urination at night has gone down to 4 times at night. His stools just this week when he stopped his Imodium within 24 hours have become loose again. He is gone back on his Imodium at this point. He does feel overall that all of his symptoms are moving in the right direction. He continues to take Flomax twice a day. [facility]. He says he has not had any for about a month. He did have a PSA drawn and it was 0.67 just before [place]. Current Medications: Allergies: Current Complaints / Review of Systems: . Vital Signs: Performed on 02/19/2024 10:25 AM BMI - 39.471 kg/m2 (high), Height - 71 in, Weight - 283 lbs, Temperature - 96.7 f, Pulse - 84 /min, Respiration - 18 /min, O2 Sat - 93 % (low), Pain - 0, Fatigue - 6 and BP - 118/ 77 mm(hg). Physical Exam: General: Alert and oriented x 3. No acute distress. HEENT: Normocephalic atraumatic. Pupils are equal, sclera clear, extraocular muscles intact. LUNGS: Respiratory rate is regular nonlabored. HEART: Irregular rate and rhythm due to A-fib. . ABDOMEN: Moderately protuberant android pattern Performance Status: 80 Lab: None pending. Pathology: Primary, c61 - malignant neoplasm of prostate, Diagnosed 12/01/2023 (active) . Imaging: See HPI Impression: Adenocarcinoma the prostate now 1 month from completion of treatment Plan: At this point he is having improvement of his symptoms but he still has a way to go. I reminded him that he will continue to get better over the next 2 to 3 months. I will see him back in 3 months to make sure that he is had no further issues. I did ask him in the interim to go ahead and start a probiotic by either adding in pill form or by eating sauerkraut every day. He will be seeing urology next week. He does have an [facility]. Signed by: 02/19/2024 10:58:40 AM <<Signature on File>> Time spent with patient:20 CPT Code: CPT Code:
== END 2024-02-24 23:59 | disposition home or self-care (01) ==
PROVIDERS: PCP Family Medicine; Visit Provider Radiology Radiation Oncology
DX: C61 Malignant neoplasm of prostate (principal); Z92.3 Personal history of irradiation; Z79.899 Other long term (current) drug therapy; R35.0 Frequency of micturition; R19.7 Diarrhea, unspecified
CPT/HCPCS: 99024

== ENCOUNTER 2024-05-13 09:22 | Oncology outpatient (recurring) (ONCR) | payer OTHER, SELFPAY ==
--- NOTE | 2024-05-13 11:12 | ONCRAD EPV_ITS ---
Radiation Oncology Established Patient Visit Patient: Juliette Sommer [id number] : 1945> Age: 78> Sex: Male> Dictated by: Dr. Desiree Lindsey Date of Service: 05/13/2024 Referring Physician(s) : Dr. Keaton Anthony Diagnosis: C61 - Malignant neoplasm of prostate, Diagnosed 12/01/2023 (Active) Radiotherapy to Date: Course: Prostate/Pelvis, Treatment Site: [id number], Ref. ID: [id number], Energy: 15X, Dose/Fx (cGy): 250, #Fx: 28 / , Dose Correction (cGy): 0, Total Dose Delivered (cGy): 7,000, Start Date: 12/11/2023, End Date: 01/20/2024, Elapsed Days: 40 Current History: Patient returns for his 4-month check. He had his PSA done at the [facility] last week. He said he was told that it was all good. He is scheduled to go to urology in 2 weeks. Subjectively his bowel movements have returned to normal. His urination which mostly is variable at night ranges from him not getting up for 8 hours to getting up 3-5 times a night. Current Medications: Allergies: Current Complaints / Review of Systems: . Vital Signs: Performed on 05/13/2024 9:43 AM BMI - 39.248 kg/m2 (high), Height - 71 in, Weight - 281.4 lbs, Temperature - 96.8 f, Pulse - 72 /min, Respiration - 18 /min, O2 Sat - 93 % (low), Pain - 0, Fatigue - 0 and BP - 109/ 62 mm(hg)(/low). Physical Exam: General: Alert and oriented x 3. No acute distress. HEENT: Normocephalic atraumatic. Pupils are equal, sclera clear, extraocular muscles intact. LUNGS: Respiratory rate is regular nonlabored. HEART: Regular rate and rhythm. ABDOMEN: Markedly protuberant and android pattern NEUROLOGIC: Alert and orient x 3. Gait and speech within normal limits. Performance Status: 90 Lab: None pending. Pathology: Primary, c61 - malignant neoplasm of prostate, Diagnosed 12/01/2023 (active) . Imaging: See HPI Impression: Adenocarcinoma the prostate now 4 months from completion of external beam radiation Plan: At this point he is slowly recovering from his treatments. His bowels have returned to normal. His nocturia seems to be somewhat variable. We talked about some things that may help with the nocturia. Mainly trying to drink his liquids at least 3 hours before bedtime. He is taking Flomax already. At this point he will see urology in 2 weeks and we will see him back in 6 months we will call if any problems arise in the interim Signed by: 05/13/2024 11:11:29 AM <<Signature on File>> Time spent on patient: 25 CPT Code: * CPT Code: *
== END 2024-05-24 23:59 | disposition home or self-care (01) ==
PROVIDERS: PCP Family Medicine; Visit Provider Radiology Radiation Oncology
DX: Z08 Encounter for follow-up examination after completed treatment for malignant neoplasm (principal); C61 Malignant neoplasm of prostate; R35.1 Nocturia; Z92.3 Personal history of irradiation
CPT/HCPCS: 99213

== ENCOUNTER → 2024-06-09 10:20 | Outpatient (BNVA) | payer OTHER, SELFPAY | PROVIDERS: PCP Family Medicine; Visit Provider Nurse Practitioner Family | DX: R59.0 Localized enlarged lymph nodes (principal); L82.1 Other seborrheic keratosis; I87.2 Venous insufficiency (chronic) (peripheral); L44.8 Other specified papulosquamous disorders; L71.1 Rhinophyma; L57.8 Other skin changes due to chronic exposure to nonionizing radiation; Z08 Encounter for follow-up examination after completed treatment for malignant neoplasm; Z85.820 Personal history of malignant melanoma of skin; L57.0 Actinic keratosis | CPT/HCPCS: 17000; 99213 ==

== ENCOUNTER → 2024-08-10 14:27 | Outpatient (BNVA) | payer OTHER, SELFPAY | PROVIDERS: PCP Family Medicine; Visit Provider Nurse Practitioner Family | DX: R59.0 Localized enlarged lymph nodes (principal); Z08 Encounter for follow-up examination after completed treatment for malignant neoplasm; Z85.820 Personal history of malignant melanoma of skin | CPT/HCPCS: 99213 ==

== ENCOUNTER → 2024-12-01 14:58 | Outpatient (BNVA) | payer OTHER, SELFPAY | PROVIDERS: PCP Family Medicine; Visit Provider Nurse Practitioner Family | DX: Z08 Encounter for follow-up examination after completed treatment for malignant neoplasm (principal); Z85.820 Personal history of malignant melanoma of skin; L30.9 Dermatitis, unspecified; L57.0 Actinic keratosis; L56.8 Other specified acute skin changes due to ultraviolet radiation | CPT/HCPCS: 11104; 17000; 99213 ==

== ENCOUNTER → 2025-01-26 13:28 | Outpatient (BNVA) | payer OTHER, SELFPAY | PROVIDERS: PCP Family Medicine; Visit Provider Nurse Practitioner Family | DX: L57.8 Other skin changes due to chronic exposure to nonionizing radiation (principal) | CPT/HCPCS: 40490; 99213 ==

== ENCOUNTER → 2025-02-11 07:56 | Outpatient (BNVA) | payer OTHER, SELFPAY | PROVIDERS: PCP Family Medicine; Visit Provider Dermatology | DX: C00.1 Malignant neoplasm of external lower lip (principal); L57.0 Actinic keratosis | CPT/HCPCS: 11642; 13152; 17000 ==